=== PATIENT | female | born 1970 | race African-American/Black ===

== ENCOUNTER 2019-02-22 09:42 | Emergency (ER) | payer OTHER ==
[~2019-02-22] VITALS: Ht 170.2 cm; Wt 70.3 kg
--- NOTE | 2019-02-22 09:55 | NUR ---
ED Nurse Note: patient walked into ED from home c/o chest pain and blurry vision before coming into ED. patient reports hx of DM but has not been taking medication for a long time. patient reports she is undergoing a lot of stress at home. patient reports she has itchiness on vaginal area for 7 days. patient is alert awake x4 ambulatory, breathing unlabored and even, speaking in full sentences, patient on a facilities maintenance manager, patient in a hospital gown.
[2019-02-22] MEDS ORDERED: METFORMIN ER1000 MG PO ×2 (09:57→14:16)
--- NOTE | 2019-02-22 10:08 | Emergency Room Report ---
History of Present Illness General Chief Complaint: Chest Pain Source: Patient Present Illness HPI Disclaimer: Please note that this report is being documented using [employer] technology. This can lead to erroneous entry secondary to incorrect interpretation by the dictating instrument. HPI: 48-year-old female presents to the emergency department multiple complaints. She is complaining of 2 weeks of aching over the anterior portion of the chest without associated shortness of breath. No alleviating or exacerbating factors along with this chest pain and she has had it intermittently for much longer than the 2 weeks. She also noted some weakness in the legs and some blurred vision today believes her blood sugar may be out of control. Patient states she is a diabetic and was previous taking metformin and glipizide but is not had her medications in over a year. She states she has been without food for 5 days. She states she has a new primary doctor and was seen at their office but not given any new medications. She is also complaining of dysuria for some time but cannot quantify. Denies vaginal bleeding, vomiting or diarrhea. Blood sugar reading on triage is over 500 PMH: Diabetes, hypertension PSH: Reviewed Allergies: Denies Social Hx: Denies drug or alcohol abuse Allergies: Coded Allergies: No Known Allergies (Unverified , 02/22/19) Nursing Documentation-PMH Past Medical History: No History, Except For Hx Diabetes: Yes Review of Systems All Other Systems: negative except mentioned in HPI Physical Exam Vital Signs Date Time Temp Pulse Resp B/P (MAP) Pulse Ox O2 Delivery O2 Flow Rate FiO2 02/22/19 09:48 98.2 95 18 162/81 (108) 97 Room Air General: Awake and alert, no acute distress HEENT: NC/AT. EOMI. PERRLA. Vision grossly intact with full visual orr. No nystagmus. Dry mucous membranes Chest Wall: No tenderness, no deformity Cardiovascular: RRR. S1 and S2 normal. No murmur appreciated Resp: Normal work of breathing. No cough, wheezing or crackles appreciated Abdomen: Abdomen is soft, nondistended. Nontender : Normal-appearing external genitalia. There is thick white discharge present from the cervical office with a friable mucosa and minor bleeding after swab. No curd-like material. No ulcerations or other lesions appreciated. Skin: Intact. No abrasions, laceration or rash over the exposed skin MSK: Normal tone and bulk. Moving all extremities. No obvious deformity. Neuro: Awake and alert. Mentating appropriately. Medical Decision Making Diagnostic Impression: Primary Impression: Trichomonas vaginitis Additional Impressions: Hyperglycemia Chest pain ER Course 48-year-old female presents for evaluation of chest pain, blurred vision, diffuse weakness, lack of food and other low blood sugar readings. In triage her fingerstick reading was greater than 500. Concern for DKA, HHS, electrolyte abnormalities, dehydration, ACS, angina, UTI, pyelonephritis. We will start broad metabolic and infectious work-up including ketone levels possible DKA. EKG performed is nonischemic and chest pains been going on for several weeks and even longer according to patient. We will start IV fluids. Will correct blood sugar as labs resulted. Laboratory Tests Test 02/22/19 10:09 02/22/19 10:15 White Blood Count 6.8 K/UL (4.8-10.8) Red Blood Count 6.07 M/UL (4.20-5.40) H Hemoglobin 17.4 G/DL (12.0-16.0) H Hematocrit 52.7 % (37.0-47.0) H Mean Corpuscular Volume 87 FL (80-99) Mean Corpuscular Hemoglobin 28.6 PG (27.0-31.0) Mean Corpuscular Hemoglobin Concent 32.9 G/DL (32.0-36.0) Red Cell Distribution Width 11.3 % (11.6-14.8) L Platelet Count 164 K/UL (150-450) Mean Platelet Volume 11.8 FL (6.5-10.1) H Neutrophils (%) (Auto) 67.6 % (45.0-75.0) Lymphocytes (%) (Auto) 25.9 % (20.0-45.0) Monocytes (%) (Auto) 4.3 % (1.0-10.0) Eosinophils (%) (Auto) 1.2 % (0.0-3.0) Basophils (%) (Auto) 1.0 % (0.0-2.0) Sodium Level 131 MMOL/L (136-145) L Potassium Level 4.9 MMOL/L (3.5-5.1) Chloride Level 93 MMOL/L (98-107) L Carbon Dioxide Level 28 MMOL/L (21-32) Anion Gap 10 mmol/L (5-15) Blood Urea Nitrogen 16 mg/dL (7-18) Creatinine 1.3 MG/DL (0.55-1.30) Estimate Glomerular Filtration Rate 53.0 mL/min (>60) Glucose Level 653 MG/DL (74-106) *H Calcium Level 10.1 MG/DL (8.5-10.1) Magnesium Level 2.1 MG/DL (1.8-2.4) Total Bilirubin 0.8 MG/DL (0.2-1.0) Aspartate Amino Transferase (AST) 16 U/L (15-37) Alanine Aminotransferase (ALT) 30 U/L (12-78) Alkaline Phosphatase 173 U/L (46-116) H Troponin I 0.000 ng/mL (0.000-0.056) Total Protein 8.7 G/DL (6.4-8.2) H Albumin 4.3 G/DL (3.4-5.0) Globulin 4.4 g/dL Albumin/Globulin Ratio 1.0 (1.0-2.7) Acetone Level Negative (NEGATIVE) Urine Color Pale yellow Urine Appearance Clear Urine pH 6 (4.5-8.0) Urine Specific [place] 1.010 (1.005-1.035) Urine Protein Negative (NEGATIVE) Urine Glucose (UA) 4+ (NEGATIVE) H Urine Ketones Negative (NEGATIVE) Urine Blood Negative (NEGATIVE) Urine Nitrite Negative (NEGATIVE) Urine Bilirubin Negative (NEGATIVE) Urine Urobilinogen Normal MG/DL (0.0-1.0) Urine Leukocyte Esterase 1+ (NEGATIVE) H Urine RBC 2-4 /HPF (0 - 2) H Urine WBC 2-4 /HPF (0 - 2) Urine Squamous Epithelial Cells Occasional /LPF Urine Bacteria Occasional /HPF (NONE) Microbiology Date/Time Source Procedure Growth Status 02/22/19 13:15 Vaginal Wet Prep - Final Complete EKG Diagnostic Results EKG Time: 10:05 Rate: normal Rhythm: NSR ST Segments: no acute changes Other Impression Sinus rhythm, normal axis, normal intervals, no ST segment changes. Rhythm Strip Diag. Results Rhythm Strip Time: 10:05 EP Interpretation: yes Rate: 80s Rhythm: NSR, no PVC's, no ectopy Reevaluation Time: 14:13 Last Vital Signs Date Time Temp Pulse Resp B/P (MAP) Pulse Ox O2 Delivery O2 Flow Rate FiO2 02/22/19 09:48 98.2 95 18 162/81 (108) 97 Room Air Reevaluation Impression Labs show hyperglycemia but no anion gap and negative ketones. No concern for DKA at this time. Troponin is negative and EKG is nonischemic. Chest x-ray unremarkable. Chest pain and other symptoms have resolved after the patient was given IV fluids and insulin with correction of her sugars. Wet mount shows concern for trichomonas and the patient will be treated with a one-time dose of 2 g Flagyl and told to abstain from alcohol from 24 hours. She will be discharged to follow-up as an outpatient. Vital signs remained stable and she is appropriate for outpatient follow-up and further work-up of intermittent chest pain for the past several months. We will refill her medications. Discussed reasons to return to the emergency department. Understands and agrees with this treatment plan. Disposition: HOME, SELF-CARE Condition: Improved Scripts Metformin HCl (Metformin ER Gastric) 1,000 Mg [id number] 1000 MG PO BID for 14 Days, #28 TAB Prov: Boni Sinclair MD 02/22/19 Boni Sinclair MD Feb 22, 2019 10:08
[2019-02-22 10:30] LABS: EOSINOPHILS % (AUTO) 1.2 % (0.0-3.0); HEMATOCRIT 52.7 % (37.0-47.0); HEMOGLOBIN 17.4 G/DL (12.0-16.0); LYMPHOCYTES % (AUTO) 25.9 % (20.0-45.0); MEAN CORPUSCULAR VOLUME 87 FL (80-99); MONOCYTES % (AUTO) 4.3 % (1.0-10.0); NEUTROPHILS % (AUTO) 67.6 % (45.0-75.0); PLATELET COUNT 164 K/UL (150-450); RED BLOOD COUNT 6.07 M/UL (4.20-5.40); RED CELL DISTRIBUTION WIDTH 11.3 % (11.6-14.8); WHITE BLOOD COUNT 6.8 K/UL (4.8-10.8)
--- NOTE | 2019-02-22 10:30 | NUR ---
ED Nurse Note: patient assited to the restroom, taken back to her bed, patient back on the monitor, at this time, patient denies any pain or discomfort except vaginal itchiness, denies any chest pain at this time.
[2019-02-22 10:37] VITALS: BP 147/98
[2019-02-22 10:48] LABS: APPEARANCE,URINE CLEAR; BILIRUBIN, URINE NEGATIVE (NEGATIVE); COLOR,URINE PALE YELLOW; GLUCOSE, URINE (UA) 4+ (NEGATIVE); KETONES,URINE NEGATIVE (NEGATIVE); LEUKOCYTE ESTERASE ,URINE 1+ (NEGATIVE); NITRITE,URINE NEGATIVE (NEGATIVE); PH,URINE 6 (4.5-8.0); PROTEIN,URINE NEGATIVE (NEGATIVE); UROBILINOGEN,URINE NORMAL MG/DL (0.0-1.0)
[2019-02-22 11:07] LABS: ALANINE AMINOTRANSFERASE 30 U/L (12-78); ALBUMIN 4.3 G/DL (3.4-5.0); ALKALINE PHOSPHATASE 173 U/L (46-116); ANION GAP 10 mmol/L (5-15); ASPARTATE AMINO TRANSFERASE 16 U/L (15-37); BILIRUBIN,TOTAL 0.8 MG/DL (0.2-1.0); BLOOD UREA NITROGEN 16 mg/dL (7-18); CALCIUM 10.1 MG/DL (8.5-10.1); CARBON DIOXIDE 28 MMOL/L (21-32); CHLORIDE 93 MMOL/L (98-107); CREATININE 1.3 MG/DL (0.55-1.30); POTASSIUM 4.9 MMOL/L (3.5-5.1); SODIUM 131 MMOL/L (136-145)
[2019-02-22] MEDS ORDERED: Insulin Human Regular 100units/ml 3ml IV ONE (11:30)
[2019-02-22] MEDS ORDERED: Acetaminophen 500mg (ES) tab ORAL ONE ×2 (12:58→13:00)
--- NOTE | 2019-02-22 13:30 | NUR ---
ED Nurse Note: wetmount specimen sent to lab.
[2019-02-22] MEDS ORDERED: metroNIDAZOLE 500mg tab ORAL ONE (14:15)
--- NOTE | 2019-02-22 14:20 | Diagnostic Imaging Report ---
Indication: Chest pain Technique: One view of the chest Comparison: none Findings: Lungs and pleural spaces are clear. Heart size is normal. Impression: No acute process
[2019-02-22 14:25] VITALS: BP 141/92
[2019-02-22 14:39] VITALS: BP 141/92
== END 2019-02-22 14:39 | disposition home or self-care (01) ==
LOC: EMR 10:25
DX: A59.01 Trichomonal vulvovaginitis (principal); E11.65 Type 2 diabetes mellitus with hyperglycemia; R07.9 Chest pain, unspecified; I10 Essential (primary) hypertension; Z79.84 Long term (current) use of oral hypoglycemic drugs
CPT/HCPCS: 36415; 71045; 80053; 81003; 82009; 82962; 83735; 84484; 85025; 87210; 93005; 96361; 96374; J1815; Z7502; 99284

== ENCOUNTER 2019-03-06 17:43 | Emergency (ER) | payer OTHER ==
[~2019-03-06] VITALS: Ht 170.2 cm; Wt 66.7 kg
[~2019-03-06 17:43] MED LIST: METFORMIN ER1000 MG PO
--- NOTE | 2019-03-06 18:00 | NUR ---
ED Nurse Note: Patient ambulated into ER with a c/o high blood pressure, high blood sugar, and chest pain from the clinic. Patient AAOx4, on room air. Patient has no signs of respiratory distress. Placed patient in gown and on cardiac monitors. Urine specimen and blood specimen sent to laboratory.
[2019-03-06] MEDS ORDERED: ACETAMINOPHEN500 MG ORAL (18:04)
[2019-03-06] MEDS ORDERED: GLIPIZIDE5 MG ORAL (18:04)
[2019-03-06] MEDS ORDERED: LOSARTAN POTASS50 MG ORAL (18:04)
[2019-03-06] MEDS ORDERED: LEVOTHYROXINE75 MCG ORAL (18:04)
--- NOTE | 2019-03-06 18:05 | NUR ---
ED Nurse Note: ERMD bedside.
--- NOTE | 2019-03-06 18:20 | Emergency Room Report ---
History of Present Illness General Chief Complaint: Chest Pain Source: Patient Present Illness HPI Disclaimer: Please note that this report is being documented using [employer] technology. This can lead to erroneous entry secondary to incorrect interpretation by the dictating instrument. HPI: 48-year-old female history of diabetes and hypertension presents to the emergency department for evaluation of hypertension. She was seen at her PMDs office today where she reportedly had both high blood sugar readings and hypertension readings. She does not know the numerical value of either. She is otherwise in her usual state of health. She was seen in the emergency department last week for high blood sugars and hypertension as well as intermittent chest pain. She is denying chest pain or shortness of breath, headache, vision changes at this time but they have been happening intermittently for several months while the patient did not have her medications. She was sent over for medical evaluation of hypertension and hyper glycemia which are longstanding. She has been without her medications for some time but filled them today at her PMDs office. PMH: Diabetes, hypertension PSH: Reviewed Allergies: Denies Social Hx: Denies drug or alcohol use Allergies: Coded Allergies: No Known Allergies (Unverified , 02/22/19) Patient History Last Menstrual Period: 09/2018 Now: No Nursing Documentation-PMH Past Medical History: No History, Except For Hx Diabetes: Yes Review of Systems All Other Systems: negative except mentioned in HPI Physical Exam Vital Signs Date Time Temp Pulse Resp B/P (MAP) Pulse Ox O2 Delivery O2 Flow Rate FiO2 03/06/19 17:53 98.4 110 17 161/87 (111) 98 Room Air General: Awake and alert, no acute distress HEENT: NC/AT. EOMI. Cardiovascular: RRR. S1 and S2 normal. No murmur appreciated Resp: Normal work of breathing. No cough, wheezing or crackles appreciated Abdomen: Abdomen is soft, nondistended. Nontender Skin: Intact. No abrasions, laceration or rash over the exposed skin MSK: Normal tone and bulk. Moving all extremities. No obvious deformity. Neuro: Awake and alert. Mentating appropriately. Medical Decision Making Diagnostic Impression: Primary Impression: Hyperglycemia Additional Impressions: Prolonged QT interval Chest pain ER Course 48-year-old female presents for evaluation of elevated blood pressure readings and hyperglycemia noted at her PMDs office. Also reported some chest pain earlier this week but now chest pain-free. Will repeat EKG, chest x-ray, lab work-up including ketones start IV fluids. Laboratory Tests Test 03/06/19 18:00 03/06/19 18:35 03/06/19 19:00 Urine Color Pale yellow Urine Appearance Clear Urine pH 6 (4.5-8.0) Urine Specific [place] 1.005 (1.005-1.035) Urine Protein Negative (NEGATIVE) Urine Glucose (UA) 4+ (NEGATIVE) H Urine Ketones Negative (NEGATIVE) Urine Blood Negative (NEGATIVE) Urine Nitrite Negative (NEGATIVE) Urine Bilirubin Negative (NEGATIVE) Urine Urobilinogen Normal MG/DL (0.0-1.0) Urine Leukocyte Esterase Negative (NEGATIVE) Urine HCG, Qualitative Negative (NEGATIVE) Sodium Level 130 MMOL/L (136-145) L Potassium Level 4.2 MMOL/L (3.5-5.1) Chloride Level 93 MMOL/L (98-107) L Carbon Dioxide Level 25 MMOL/L (21-32) Anion Gap 12 mmol/L (5-15) Blood Urea Nitrogen 13 mg/dL (7-18) Creatinine 1.3 MG/DL (0.55-1.30) Estimate Glomerular Filtration Rate 53.0 mL/min (>60) Glucose Level 785 MG/DL (74-106) *H Calcium Level 9.2 MG/DL (8.5-10.1) Total Bilirubin 0.3 MG/DL (0.2-1.0) Aspartate Amino Transferase (AST) 18 U/L (15-37) Alanine Aminotransferase (ALT) 37 U/L (12-78) Alkaline Phosphatase 126 U/L (46-116) H Troponin I 0.029 ng/mL (0.000-0.056) Total Protein 7.0 G/DL (6.4-8.2) Albumin 3.5 G/DL (3.4-5.0) Globulin 3.5 g/dL Albumin/Globulin Ratio 1.0 (1.0-2.7) Acetone Level Positive-small (NEGATIVE) White Blood Count 6.0 K/UL (4.8-10.8) Red Blood Count 5.18 M/UL (4.20-5.40) Hemoglobin 14.8 G/DL (12.0-16.0) Hematocrit 43.0 % (37.0-47.0) Mean Corpuscular Volume 83 FL (80-99) Mean Corpuscular Hemoglobin 28.6 PG (27.0-31.0) Mean Corpuscular Hemoglobin Concent 34.4 G/DL (32.0-36.0) Red Cell Distribution Width 10.0 % (11.6-14.8) L Platelet Count 209 K/UL (150-450) Mean Platelet Volume 8.0 FL (6.5-10.1) Neutrophils (%) (Auto) 58.1 % (45.0-75.0) Lymphocytes (%) (Auto) 33.2 % (20.0-45.0) Monocytes (%) (Auto) 6.7 % (1.0-10.0) Eosinophils (%) (Auto) 0.7 % (0.0-3.0) Basophils (%) (Auto) 1.4 % (0.0-2.0) EKG Diagnostic Results EKG Time: 18:08 Rate: normal Rhythm: NSR ST Segments: no acute changes Other Impression Sinus rhythm, normal axis, prolonged QTC at [address] segment changes. Largely unchanged from previous EKGs Rhythm Strip Diag. Results Rhythm Strip Time: 18:08 EP Interpretation: yes Rate: 90s Rhythm: NSR, no PVC's, no ectopy Chest X-Ray Diagnostic Results Chest X-Ray Diagnostic Results : Chest X-Ray Ordered: Yes # of Views/Limited/Complete: 1 View Indication: Chest Pain EP Interpretation: Yes Interpretation: no consolidation, no effusion, no pneumothorax Impression: No acute disease Electronically Signed by: Electronically signed by Dr. Boni Sinclair Reevaluation Time: 19:59 Last Vital Signs Date Time Temp Pulse Resp B/P (MAP) Pulse Ox O2 Delivery O2 Flow Rate FiO2 03/06/19 17:53 98.4 110 17 161/87 (111) 98 Room Air Reevaluation Impression Labs have returned largely within normal limits aside from elevated glucose. No white count, no shift, negative troponin. Glucose is elevated at 785. The patient is receiving IV fluids and will be given insulin. Trace ketones found but there is no gap. The patient is not currently in DKA. Glucose is present in urine but no ketones. EKG unchanged from previous and x-ray unremarkable. Patient has no chest pain and no other complaints at this time. Her heart rate and blood pressure are within normal limits. She will be treated with for hyperglycemia. She picked up her medications today to start taking them regularly. She was without medication for a long time prior to today's presentation. 2129: Glucose improved significantly after IV fluids and insulin. Discussed admission versus outpatient treatment with the patient and a joint decision making session. Patient would like to be discharged home to follow-up as an outpatient. Now that she has her medications she feels that she can control this as an outpatient and follow-up with specialist on her own. She is reasonable and I believe she would return to the ED with any changes in her condition. We did discuss reasons to return to the emergency department. She understands and agrees with the treatment plan will be discharged home. Disposition: HOME, SELF-CARE Condition: Improved Boni Sinclair MD Mar 06, 2019 18:20
[2019-03-06 18:23] LABS: APPEARANCE,URINE CLEAR; BILIRUBIN, URINE NEGATIVE (NEGATIVE); COLOR,URINE PALE YELLOW; GLUCOSE, URINE (UA) 4+ (NEGATIVE); KETONES,URINE NEGATIVE (NEGATIVE); LEUKOCYTE ESTERASE ,URINE NEGATIVE (NEGATIVE); NITRITE,URINE NEGATIVE (NEGATIVE); PH,URINE 6 (4.5-8.0); PROTEIN,URINE NEGATIVE (NEGATIVE); UROBILINOGEN,URINE NORMAL MG/DL (0.0-1.0)
--- NOTE | 2019-03-06 18:58 | NUR ---
ED Nurse Note: Pt with X-ray tech
--- NOTE | 2019-03-06 18:58 | NUR ---
ED Nurse Note: xray at bedside.
--- NOTE | 2019-03-06 19:12 | NUR ---
ED Nurse Note: Lav tube sent to lab.
[2019-03-06 19:18] LABS: BASOPHILS % (AUTO) 1.4 % (0.0-2.0); EOSINOPHILS % (AUTO) 0.7 % (0.0-3.0); HEMOGLOBIN 14.8 G/DL (12.0-16.0); LYMPHOCYTES % (AUTO) 33.2 % (20.0-45.0); MEAN CORPUSCULAR VOLUME 83 FL (80-99); MONOCYTES % (AUTO) 6.7 % (1.0-10.0); NEUTROPHILS % (AUTO) 58.1 % (45.0-75.0); PLATELET COUNT 209 K/UL (150-450); RED BLOOD COUNT 5.18 M/UL (4.20-5.40)
[2019-03-06 19:29] LABS: ANION GAP 12 mmol/L (5-15); BLOOD UREA NITROGEN 13 mg/dL (7-18); CALCIUM 9.2 MG/DL (8.5-10.1); CARBON DIOXIDE 25 MMOL/L (21-32); CHLORIDE 93 MMOL/L (98-107); CREATININE 1.3 MG/DL (0.55-1.30); POTASSIUM 4.2 MMOL/L (3.5-5.1); SODIUM 130 MMOL/L (136-145)
[2019-03-06 19:30] VITALS: BP 165/88
[2019-03-06 19:30] LABS: ALANINE AMINOTRANSFERASE 37 U/L (12-78); ALBUMIN 3.5 G/DL (3.4-5.0); ALKALINE PHOSPHATASE 126 U/L (46-116); ASPARTATE AMINO TRANSFERASE 18 U/L (15-37); BILIRUBIN,TOTAL 0.3 MG/DL (0.2-1.0)
[2019-03-06] MEDS ORDERED: Insulin Human Regular 100units/ml 3ml IV ONE (20:00)
--- NOTE | 2019-03-06 20:38 | NUR ---
ED Nurse Note: [id number]
[2019-03-06 21:15] VITALS: BP 146/85
--- NOTE | 2019-03-06 21:31 | NUR ---
ED Nurse Note: [id number]
[2019-03-06 21:45] VITALS: BP 146/82
--- NOTE | 2019-03-06 21:45 | NUR ---
ER DISCHARGE NOTE: Patient is cleared to be discharged per ERMD, pt is aox4, on room air, with stable vital signs. pt was given dc and prescription instructions, pt was able to verbalize understanding, pt id band and iv site removed without complications. pt is able to ambulate with steady gait. pt took all belongings. Pt states pain ia 0/10 and feels safe going home.
--- NOTE | 2019-03-07 13:42 | Diagnostic Imaging Report ---
Indication: Chest pain Technique: One view of the chest Comparison: 02/22/2019 Findings: Lungs and pleural spaces are clear. Heart size is normal. Findings are unchanged Impression: No acute process
== END 2019-03-06 21:45 | disposition home or self-care (01) ==
LOC: EMR 21:00
DX: E11.65 Type 2 diabetes mellitus with hyperglycemia (principal); I10 Essential (primary) hypertension; R07.9 Chest pain, unspecified
CPT/HCPCS: 36415; 71045; 80053; 81003; 81025; 82009; 82962; 84484; 85025; 93005; 96361; 96374; J1815; J7030; Z7502; 99284

== ENCOUNTER 2019-04-28 11:52 | Inpatient (IN) | payer OTHER ==
[~2019-04-28] VITALS: Ht 167.6 cm; Wt 63.5 kg
[~2019-04-28 11:52] MED LIST changes: +ACETAMINOPHEN500 MG ORAL; +GLIPIZIDE5 MG ORAL; +LEVOTHYROXINE75 MCG ORAL; +LOSARTAN POTASS50 MG ORAL
[2019-04-28] MEDS ORDERED: BIOTIN2500 MCG PO (12:08)
[2019-04-28] MEDS ORDERED: ATORVASTATIN CA20 MG ORAL (12:08)
[2019-04-28 12:15] VITALS: BP 129/66
[2019-04-28] MEDS ORDERED: Ketorolac 30mg Inj IV ONE (12:15)
[2019-04-28] MEDS ORDERED: Omnipaque-300 100ml vial INJ PRN (12:15)
--- NOTE | 2019-04-28 12:15 | NUR ---
ED Nurse Note: Pt walked in from home c/o abdominal pain since this morning. Pt is diabetic and checked her sugar and it said "high." Pt also feels weak. Respirations even and unlabored on room air. A+O4, talking in complete sentences. Vitals stable as documented. Pt placed on monitor and EKG done
--- NOTE | 2019-04-28 12:27 | NUR ---
ED Nurse Note: Iv inserted, blood drawn. Urine and blood sent to lab
[2019-04-28 12:35] LABS: APPEARANCE,URINE CLEAR; BILIRUBIN, URINE NEGATIVE (NEGATIVE); COLOR,URINE PALE YELLOW; GLUCOSE, URINE (UA) 4+ (NEGATIVE); KETONES,URINE NEGATIVE (NEGATIVE); LEUKOCYTE ESTERASE ,URINE NEGATIVE (NEGATIVE); NITRITE,URINE NEGATIVE (NEGATIVE); PH,URINE 5 (4.5-8.0); PROTEIN,URINE NEGATIVE (NEGATIVE); UROBILINOGEN,URINE NORMAL MG/DL (0.0-1.0)
[2019-04-28 12:36] LABS: BASOPHILS % (AUTO) 1.3 % (0.0-2.0); EOSINOPHILS % (AUTO) 2.1 % (0.0-3.0); HEMATOCRIT 43.6 % (37.0-47.0); HEMOGLOBIN 14.6 G/DL (12.0-16.0); LYMPHOCYTES % (AUTO) 30.4 % (20.0-45.0); MEAN CORPUSCULAR VOLUME 87 FL (80-99); MONOCYTES % (AUTO) 6.5 % (1.0-10.0); NEUTROPHILS % (AUTO) 59.6 % (45.0-75.0); PLATELET COUNT 229 K/UL (150-450); RED BLOOD COUNT 5.02 M/UL (4.20-5.40); WHITE BLOOD COUNT 6.5 K/UL (4.8-10.8)
--- NOTE | 2019-04-28 12:37 | Emergency Room Report ---
History of Present Illness General Chief Complaint: Abdominal Pain Source: Patient (Horace Briseno) Present Illness HPI 48-year-old female with history of type 2 diabetes currently not controlled and on metformin 1000 mg twice daily here complaining of 3 weeks of abdominal distention and pain. Patient also complains of slight blurry vision and tingling sensation bilateral lower extremities x1 week. Reports that she just went to her primary care doctor Accu-Chek showed that her sugar is critically high. Patient denies any urinary symptoms however complains of chest pressure denying chest pain radiating to the arm. Denies unilateral and generalized weakness. Denies headache and dizziness at this time. Reports that she has been experiencing an acidic and frothy taste in her mouth for the past few weeks. Complains of nausea however denies vomiting. Reports that she was also constipated and took a laxative yesterday and had a bowel movement 1 day ago. Denies any blood in stool. Denies fever and chills, recent travel. Denies all URI symptoms. Denies at this time. Denies tobacco smoking alcohol intake however reports that she often uses marijuana. (Horace Briseno) Allergies: Coded Allergies: No Known Allergies (Unverified , 02/22/19) Patient History Past Medical History: see triage record Past Surgical History: unable to obtain Pertinent Family History: none Social History: Reports: drug use - marijuana Now: No Immunizations: UTD Reviewed Nursing Documentation: PMH: Agreed; PSxH: Agreed (Horace Briseno) Nursing Documentation-PMH Past Medical History: No History, Except For Hx Hypertension: Yes - HIGH CHOLESTEROL Hx Diabetes: Yes (Horace Briseno) Review of Systems All Other Systems: negative except mentioned in HPI (Horace Briseno) Physical Exam Vital Signs Date Time Temp Pulse Resp B/P (MAP) Pulse Ox O2 Delivery O2 Flow Rate FiO2 04/28/19 11:57 98.2 102 16 145/89 (107) 100 Room Air Sp02 EP Interpretation: reviewed, normal General Appearance: alert, GCS 15, non-toxic, mild distress Head: normocephalic, atraumatic Eyes: bilateral eye normal inspection, bilateral eye PERRL ENT: hearing grossly normal, normal pharynx, no angioedema, normal voice Neck: full range of motion, supple, no meningismus, supple/symm/no masses Respiratory: chest non-tender, lungs clear, normal breath sounds, no rhonchi, no retraction, no wheezing, speaking full sentences Cardiovascular #1: regular rate, rhythm, no edema, no murmur, normal capillary refill Gastrointestinal: normal bowel sounds, non tender, soft, no peritonitis, no bruit, no guarding, no hernia, no pulsatile mass, no rebound, distended Rectal: deferred Genitourinary: no CVA tenderness Musculoskeletal: back normal, no calf tenderness, pelvis stable, Florencio's Sign negative Neurologic: alert, motor strength/tone normal, oriented x3, sensory intact, responsive, speech normal Psychiatric: judgement/insight normal, memory normal, mood/affect normal, no suicidal/homicidal ideation Skin: no rash Lymphatic: no adenopathy (Horace Briseno) Medical Decision Making PA Attestation All diagnoses and treatment plans were reviewed and discussed with my supervising physician Dr. Deluca All my diagnosis and treatment plans were reviewed ad discussed with my supervising physician Dr. Gaming (Horace Briseno) Diagnostic Impression: Primary Impression: Hyperglycemia Additional Impression: Elevated lactic acid level ER Course 48-year-old female with history of type 2 diabetes currently not controlled and on metformin 1000 mg twice daily here complaining of 3 weeks of abdominal distention and pain. Patient also complains of slight blurry vision and tingling sensation bilateral lower extremities x1 week. Reports that she just went to her primary care doctor Accu-Chek showed that her sugar is critically high. Patient denies any urinary symptoms however complains of chest pressure denying chest pain radiating to the arm. Denies unilateral and generalized weakness. Denies headache and dizziness at this time. Reports that she has been experiencing an acidic and frothy taste in her mouth for the past few weeks. Complains of nausea however denies vomiting. Reports that she was also constipated and took a laxative yesterday and had a bowel movement 1 day ago. Denies any blood in stool. Denies fever and chills, recent travel. Denies all URI symptoms. Denies at this time. Denies tobacco smoking alcohol intake however reports that she often uses marijuana. Ddx considered but are not limited to: Diabetic ketoacidosis, hyperglycemia, pancreatitis, appendicitis, cholecystis, gastritis, gastroenteritis, UTI, pyelonephritis, SBO, diverticulitis, influenza with GI manifestation, MD, complication with Vital signs: are WNL, pt. is afebrile H&PE are most consistent with: Hyperglycemia, elevated lactic acid ORDERS: abdominal CT, abdominal pain set, EKG, troponin, BNP ED INTERVENTIONS: NS bolus and 300/h, Zofran, Pepcid, Toradol, cefepime, Flagyl Patient was admitted with diagnosis of glycemia, elevated lactic acid to Dr. Tamayo under supervision of Dr.: Yosi and Mekhi pt stable at time of admission (Horace Briseno) ER Course Please see above note. Patient examined by me and discussed in detail regarding treatment plan. Discussed with Dr. Adame. Recall Dr. Gonzalez to discuss elevated lactic acid. 30 mg/kg bolus given and antibiotics started.SEPSIS RE-EVALUATION: Vital signs improving. Patient ambulatory and alert. Capillary fill good. I, Leo Deluca MD, Performed the Sepsis Re-evaluation at 14:00. Discussed with Dr. Gonzalez. He will send ALS transport. Glucose 375. Patient ambulatory to bathroom without distress. (Leo Deluca MD) ER Course Patient endorsed to me by Dr. Deluca. Patient is pending transfer however patient's insurance was unable to arrange timely transfer. Patient will be admitted to the hospital at [facility]. Dr. Shalom Ellison was contacted for inpatient management. (Ramo Gaming MD) EKG Diagnostic Results Rate: normal Rhythm: NSR ST Segments: no acute changes Other Impression No acute ST changes (Horace Briseno) Rate: tachycardiac Rhythm: NSR ST Segments: no acute changes - biatrial enlargement, rate 100 (Leo Deluca MD) Rhythm Strip Diag. Results Rhythm: NSR, no PVC's, no ectopy (Leo Deluca MD) Chest X-Ray Diagnostic Results Chest X-Ray Diagnostic Results : Chest X-Ray Ordered: Yes # of Views/Limited/Complete: 1 View Indication: Other EP Interpretation: Yes PA Xray: Interpretation reviewed, by supervising MD, and agrees with findings. Interpretation: no consolidation, no effusion, no pneumothorax Impression: No acute disease Electronically Signed by: Horace Broussard PA-C (Horace Briseno) Chest X-Ray Diagnostic Results : Electronically Signed by: P A documentation of Xray reviewed by me and is accurate, Leo Deluca MD (Leo Deluca MD) CT/MRI/US Diagnostic Results CT/MRI/US Diagnostic Results : Imaging Test Ordered: CT abdomen pelvis with contrast Impression Within normal limits (Horace Briseno) CT/MRI/US Diagnostic Results : Imaging Test Ordered: Abdomen pelvis Impression Retained stool no surgical pathology (Leo Deluca MD) Last Vital Signs Date Time Temp Pulse Resp B/P (MAP) Pulse Ox O2 Delivery O2 Flow Rate FiO2 04/28/19 11:57 98.2 102 16 145/89 (107) 100 Room Air (Horace Briseno) Last Vital Signs Date Time Temp Pulse Resp B/P (MAP) Pulse Ox O2 Delivery O2 Flow Rate FiO2 04/28/19 21:20 72 04/28/19 21:20 Room Air 04/28/19 20:50 98.3 18 121/82 100 Status: improved (Leo Deluca MD) Status: improved (Ramo Gaming MD) Disposition: ADMITTED INPATIENT Condition: Serious Referrals: NON PHYSICIAN (PCP) Horace Briseno Apr 28, 2019 12:37 Leo Deluca MD Apr 28, 2019 14:56 Ramo Gaming MD May 01, 2019 22:29
[2019-04-28 12:45] LABS: INR 0.9 (0.9-1.1)
[2019-04-28 12:59] LABS: ALANINE AMINOTRANSFERASE 51 U/L (12-78); ALBUMIN 3.6 G/DL (3.4-5.0); ALBUMIN/GLOBULIN RATIO 0.9 (1.0-2.7); ALKALINE PHOSPHATASE 142 U/L (46-116); ANION GAP 15 mmol/L (5-15); ASPARTATE AMINO TRANSFERASE 21 U/L (15-37); BILIRUBIN,TOTAL 0.5 MG/DL (0.2-1.0); BLOOD UREA NITROGEN 12 mg/dL (7-18); CALCIUM 9.1 MG/DL (8.5-10.1); CARBON DIOXIDE 24 MMOL/L (21-32); CHLORIDE 92 MMOL/L (98-107); CREATINE KINASE 79 U/L (26-308); CREATININE 1.4 MG/DL (0.55-1.30); POTASSIUM 4.4 MMOL/L (3.5-5.1); SODIUM 131 MMOL/L (136-145)
--- NOTE | 2019-04-28 13:23 | NUR ---
ED Nurse Note: Pt in CT
[2019-04-28] MEDS ORDERED: Insulin Human Regular 100units/ml 3ml IV ONE (13:30)
[2019-04-28] MEDS ORDERED: metroNIDAZOLE 500mg tab ORAL ONE (13:45)
[2019-04-28] MEDS ORDERED: Cefepime HCl 2 GM in D5W 55 ML IVPB ONE (13:45)
[2019-04-28 14:10] VITALS: BP 112/78
--- NOTE | 2019-04-28 14:30 | Diagnostic Imaging Report ---
INDICATION: Abdominal pain TECHNIQUE: Continuous helical transaxial imaging of the abdomen and pelvis was obtained from the lung bases to the pubic symphysis during intravenous contrast administration. Coronal 2-D reformats were also obtained. Study obtained in a Siemens sensation [address] Automatic Exposure Control was utilized. Total Dose length Product (DLP): 751.[address] Dose Index Volume (CTDIvol): 13.6 mGy COMPARISON: None FINDINGS: Lungs: The visualized lung bases are clear. Liver: Unremarkable Gallbladder/biliary system: Gallbladder is contracted. There is no biliary ductal dilatation appreciated.. Spleen: Unremarkable Pancreas: Unremarkable Kidneys: No hydronephrosis identified. Both kidneys enhance symmetrically.. Adrenal glands: Unremarkable Aorta/IVC: Unremarkable Bowel: Bowel gas pattern is nonobstructive. There is a moderate amount of fecal retention within the colon which is slightly distended. There are diverticula in the left hemicolon. No evidence of acute diverticulitis appreciated. Bladder: Unremarkable Peritoneum: There is no free fluid. Uterus is noted.. Bones: There is loss of height of the L5-S1 disc with vacuum phenomena and endplate osteophyte formation. Hypertrophied facets also demonstrated at L4-5 and L5-S1. IMPRESSION: Moderate fecal retention within the colon. 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 Contracted gallbladder not evaluated well. The CT scanner at [facility] is accredited by the [employer] and the scans are performed using dose optimization techniques as appropriate to a performed exam including Automatic Exposure control.
--- NOTE | 2019-04-28 15:09 | NUR ---
ED Nurse Note: Fabricio jackson 375. ED PA aware
--- NOTE | 2019-04-28 15:41 | Diagnostic Imaging Report ---
Indication: Dyspnea Comparison: 03/06/2019 A single view chest radiograph was obtained. Findings: Cardiomediastinal appearance is within normal limits for age. The lungs are clear. Pulmonary vascularity is appropriate. The diaphragmatic contour is smooth and costophrenic angles are sharp. No pleural effusions are identified. The bones are unremarkable. Impression: No acute findings
--- NOTE | 2019-04-28 16:18 | NUR ---
ED Nurse Note: Pt is to be transferred to [facility]
[2019-04-28 17:49] VITALS: BP 115/79
--- NOTE | 2019-04-28 19:09 | NUR ---
ED Nurse Note: Report given to JOELLE sOborn. Plan of care endorsed.
[2019-04-28 19:10] VITALS: BP 119/69
--- NOTE | 2019-04-28 19:19 | NUR ---
ED Nurse Note: Received report from Emelyn LAI.
--- NOTE | 2019-04-28 19:50 | NUR ---
ED Nurse Note: Report given to Macrina LAI.
[2019-04-28 20:50] VITALS: BP 121/82
--- NOTE | 2019-04-28 20:50 | NUR ---
TRANSFER TO FLOOR: Patient transferred to Telemetry unit. Report given to Macrina LAI. Pt alert and oriented, verbally responsive. Not in any distress. No SOB. Sinus rhythm. IV line on right AC 18g patent and intact. No skin issues. Med recon done. All belongings sent with the patient.
--- NOTE | 2019-04-28 21:25 | NUR ---
NURSE NOTES: Patient arrived to the unit via gurney at 0, accompanied by the RN and the dev technical mgr. Received report from Anurag, the HARNESS PREPARER. Patient is awake, alert, and responsive. Breathing regular and unlabored on RA with no s/s of SOB noted at this time. Patient denies any pain or discomfort at this time. IV access is on the RAC 18G, patent, intact, and saline locked. Patient is ambulatory, with a steady gait. Patient's belongings are at bedside, belongings list signed by the patient. Patient stated "My will take all my stuff when he comes." Placed patient on teletypesetter monitor, NSR on the monitor. Oriented patient to the room, patient is able to make needs known and verbalizes understanding of when to call. Bed is in lowest position, breaks engaged, side-rails up x2, and call light is within reach at all times. Patient is currently stable, awaiting orders from the MD. All other needs attended to, will continue to monitor.
--- NOTE | 2019-04-28 21:40 | NUR ---
NURSE NOTES: Contacted Dr. Ellison to receive admitting orders, left a message with the support line that advised they will page Dr. Ellison for orders. Will await response.
--- NOTE | 2019-04-28 22:45 | NUR ---
NURSE NOTES: Contacted Dr. Newby and Dr. Fang to find out if they are covering for Dr. Ellison to receive admitting orders. No new orders, awaiting response.
--- NOTE | 2019-04-28 23:25 | NUR ---
NURSE NOTES: Contacted Dr. Ellison's office again for admitting orders. Support system said they will page the doctor again. Will await response.
[2019-04-29] VITALS: BP 131/90
[2019-04-29] MEDS: D5 1/2NS 1,000 ML IV SCH ×2 (01:46→17:31)
[2019-04-29] MEDS: Morphine Sulfate 2mg/ml Inj(IV/IM USE ONLY) IVP PRN ×2 (01:49→08:52)
[2019-04-29] MEDS ORDERED: Acetaminophen 500mg (ES) tab ORAL SCH (02:00)
[2019-04-29] MEDS ORDERED: Acetaminophen 500mg (ES) tab ORAL PRN (02:45)
--- NOTE | 2019-04-29 03:37 | NUR ---
NURSE NOTES: Noted patient suddenly started to yell and bang on the side of the bed. Attended to the patient right away to try and calm him down and see what was wrong. Patient was continuously screaming, banging on the bed, trying to remove his IV. Multiple RN's attended to the patient in attempt to calm him down and preventing him from trying to pull out his IV. Administered PRN Ativan as ordered for anxiety. Remained with the patient in attempt to relieve anxiety. Contacted the patient's sister and left a voicemail in regards to what had occurred. Patient is currently stable, patient appears to be calm, no longer banging on anything, no longer yelling, and no longer pulling on anything. Patient is not in any acute distress, VS remain stable, all other needs attended to, call light within reach, will continue to monitor. Addendum: 04/29/19 at 0343 by Lesvia Adorno RN Please ignore, wrong patient chart
[2019-04-29 04:00] VITALS: BP 124/68
[2019-04-29] MEDS: NovoLOG Insulin Flexpen SUBQ SCH ×4 (06:20→21:02)
[2019-04-29] MEDS ORDERED: Levothyroxine 25mcg tab ORAL SCH (06:30)
[2019-04-29 07:24] LABS: BASOPHILS % (AUTO) 1.5 % (0.0-2.0); EOSINOPHILS % (AUTO) 2.2 % (0.0-3.0); HEMATOCRIT 38.1 % (37.0-47.0); HEMOGLOBIN 13.1 G/DL (12.0-16.0); LYMPHOCYTES % (AUTO) 33.7 % (20.0-45.0); MEAN CORPUSCULAR VOLUME 86 FL (80-99); MONOCYTES % (AUTO) 7.5 % (1.0-10.0); PLATELET COUNT 193 K/UL (150-450); RED BLOOD COUNT 4.43 M/UL (4.20-5.40); RED CELL DISTRIBUTION WIDTH 11.9 % (11.6-14.8); WHITE BLOOD COUNT 5.1 K/UL (4.8-10.8)
[2019-04-29 07:25] LABS: ANION GAP 8 mmol/L (5-15); BLOOD UREA NITROGEN 10 mg/dL (7-18); CALCIUM 8.4 MG/DL (8.5-10.1); CARBON DIOXIDE 27 MMOL/L (21-32); CHLORIDE 104 MMOL/L (98-107); CREATININE 0.8 MG/DL (0.55-1.30); POTASSIUM 4.1 MMOL/L (3.5-5.1); SODIUM 139 MMOL/L (136-145)
--- NOTE | 2019-04-29 07:45 | NUR ---
HAND-OFF: Report given to JOELLE Foster. Plan of care endorsed, patient remains stable.
--- NOTE | 2019-04-29 07:49 | NUR ---
NURSE NOTES: Received report from Macrina/RN, Patient is awake and alert, lying semi-dodd's, resting comfortably. On room air, no acute distress/SOB noted. Able to make needs known, Denies pain at this time. IV on right AC patent, no infiltration or bleeding noted, D5 1/2 NS running at 60cc/hr. Bed in low position and locked, Call light within reach, Encouraged to use call light when needed. Will continue plan of care.
[2019-04-29 08:00] VITALS: BP 146/91
[2019-04-29] MEDS: Losartan 50mg tab ORAL SCH (08:52)
[2019-04-29] MEDS ORDERED: GlipiZIDE 5mg tab ORAL SCH (09:00)
[2019-04-29] MEDS ORDERED: Sorbitol Solution UD 30ml ORAL SCH (11:00)
[2019-04-29 12:00] VITALS: BP 124/87
--- NOTE | 2019-04-29 12:30 | History and Physical Report ---
DATE OF ADMISSION: 04/28/2019 DATE AND TIME SEEN: 04/29/2019 at 8 a.m. CONSULTANTS: 1. Cortes Styles M.D. 2. Reilly Summers M.D. CHIEF COMPLAINT: Diabetes, hyperglycemia, abdominal distention, lactic acidosis. BRIEF HISTORY: This is a 48-year-old female, who lives at home with a history of diabetes, presented with increased abdominal distention and burning for about a week. No nausea, vomiting, came to [facility], diagnosed with diabetes, hyperglycemia, lactic acidosis, and abdominal distention. Admitted to telemetry for further care. Currently, calm in bed, slight abdominal discomfort. No complaint. REVIEW OF SYSTEMS: No chest pain. No shortness of breath. No nausea, vomiting, or diarrhea. PAST MEDICAL HISTORY: Diabetes and hypertension. PAST SURGICAL HISTORY: None. MEDICATIONS: Include metformin, atorvastatin, glipizide, losartan, insulin, levothyroxine, Tylenol, dextrose, morphine, Zofran, and cefepime. ALLERGIES: Denies. SOCIAL HISTORY: No smoking. No alcohol. No intravenous drug abuse. FAMILY HISTORY: Noncontributory. PHYSICAL EXAMINATION: GENERAL: Calm in bed, oriented x3, no acute distress. VITAL SIGNS: Temperature is 97 degrees, pulse , respirations 18, blood pressure 124/68. CARDIOVASCULAR: No murmur. LUNGS: Distant and clear. ABDOMEN: Bowel sounds positive. Nontender. Nondistended. EXTREMITIES: No cyanosis, clubbing, or edema. NEUROLOGIC: The patient moves all extremities, slightly weak. LABORATORY AND DIAGNOSTIC DATA: Labs at this time show CBC is normal. BMP shows initial sodium 131, chloride 92, creatinine 1.4, glucose of 689, but now recheck is 401. Troponin 0.011. INR is 0.9, PTT is 25. Urine tox is positive for marijuana. Urinalysis show 4+ glucose. ASSESSMENT: 1. Diabetes. 2. Hyperglycemia. 3. Abdominal distention. 4. Lactic acidosis. 5. Hypertension. 6. Drug abuse. PLAN: 1. Blood pressure, blood sugar, pain control. 2. Dietary followup. 3. GI and Endocrine followup. 4. Detox. 5. PT and dietary evaluation. 6. CBC and BMP in the morning. Shalom Ellison D.O. DR: TRUDY JOB#: [id number] CC:
[2019-04-29 16:00] VITALS: BP 130/78
[2019-04-29] MEDS: GlipiZIDE 5mg tab ORAL SCH (17:30)
--- NOTE | 2019-04-29 19:42 | NUR ---
HAND-OFF: Report given to Melissa/RN, Patient is in stable condition, Endorsed plan of care.
--- NOTE | 2019-04-29 19:45 | NUR ---
NURSE NOTES: received pt from JOELLE Foster. pt is AO X4, able to make needs known, denies pain at this time. pt is on room air, tolerating well. no s/sx of respiratory distress noted. cardiac nurse specialist shows SR. no acute cardiac distress noted. RAC 18 g IV site is patent and intact, running D51/2 NS at 60 cc/hr. bed in lowest position and locked, siderails up X2, call light within reach. will continue to monitor.
[2019-04-29 20:00] VITALS: BP 128/79
--- NOTE | 2019-04-29 22:15 | Consultation ---
DATE OF CONSULTATION: 04/29/2019 GASTROENTEROLOGY CONSULTATION CONSULTING PHYSICIAN: Carlos Light M.D. CHIEF COMPLAINT: I was asked to see this patient by Dr. Shalom Ellison for evaluation of abdominal complaints. HISTORY OF PRESENT ILLNESS: The patient is a 48-year-old woman who comes through the emergency room due to abdominal distention. The patient has had a 3-week history of abdominal distention and discomfort, which was uncertain, but got worse a week prior to admission. She also noticed decreased amounts of bowel movements and somewhat constipated pattern. She does take marijuana and has had a history of cocaine use in the past, but she states she is not active on drug use anymore. She has not had a colonoscopy, and denies any hematochezia. She had some nausea, but no vomiting. She came to the emergency room where a CT scan showed fecal loading and blood tests showed diabetes, which is out of control and therefore she was admitted. She feels better today and abdomen is actually more flat, but she has not had a bowel movement yet. PAST MEDICAL HISTORY: History of diabetes, history of high cholesterol. PAST SURGICAL HISTORY: Status post gynecological surgery. FAMILY HISTORY: Noncontributory. SOCIAL HISTORY: The patient denies smoking or drinking alcohol, although she does have some marijuana use. ALLERGIES: None. REVIEW OF SYSTEMS: Otherwise negative. MEDICATIONS: See the chart list for details. PHYSICAL EXAMINATION: GENERAL: Pleasant woman, seen in her room. HEENT: Normocephalic and atraumatic. Sclerae are anicteric. Oropharynx is clear. NECK: Supple. CHEST: Clear to auscultation. CARDIOVASCULAR: Revealed a regular rate. ABDOMEN: Soft, flat. Good bowel sounds. There is no tenderness. EXTREMITIES: Revealed no edema. LABORATORY AND DIAGNOSTIC DATA: Laboratory data were noted. CT scan was reviewed. ASSESSMENT: This patient presents with a vague complaint of abdominal discomfort, which coincides with a period of constipation. The CT scan is consistent with fecal loading and therefore that potentially may be the only finding to evaluate and treat. I would like patient to be placed on sorbitol as needed to clear out the bowel. I will also check a stool occult blood. The patient should undergo a colonoscopy given her symptoms, but this could be as an outpatient in the near future. For the time being, I would hydrate the patient. Initial creatinine was 1.4 and followup alkaline phosphate which was mildly elevated. RECOMMENDATIONS: Per above discussion and per orders written in the chart. Thank you for asking me to participate in the care of this patient. Carlos Light M.D. DR: CHARLOTTE JOB#: [id number] CC: MERISSA
--- NOTE | 2019-04-29 23:00 | Consultation ---
DATE OF CONSULTATION: 04/29/2019 ENDOCRINOLOGY CONSULTATION CONSULTING PHYSICIAN: Reilly Summers M.D. REFERRING PHYSICIAN: Shalom Ellison M.D. REASON FOR CONSULTATION: Diabetes management. HISTORY OF PRESENT ILLNESS: This is a 48-year-old female with a history of diabetes, on metformin and glipizide as an outpatient, who presents to the hospital with abdominal pain and bloating and a glucose of 689. The patient's lactic acid is elevated at 7.3. Endocrinology was consulted in order to assist in management of diabetes. PAST MEDICAL HISTORY: 1. Diabetes. 2. Hypothyroidism. 3. Hypertension. 4. Hyperlipidemia. MEDICATIONS: Reviewed and reconciled. SOCIAL HISTORY: Smokes marijuana. No alcohol or drug use. REVIEW OF SYSTEMS: A 12-point review of systems was performed. The pertinent positives and negatives are mentioned in the history of present illness. LABORATORY DATA: Sodium 131, potassium 4.4, chloride 92, bicarb 24, BUN 12, creatinine 1.4, glucose 689, and lactic acid 7.3. PHYSICAL EXAMINATION: GENERAL: She is awake and alert. VITAL SIGNS: Blood pressure is 146/91, heart rate of 79, respiratory rate of 18, and temperature of 97.5. HEENT: Pupils are equal and reactive to light. Sclerae are anicteric. NECK: No JVD. No thyromegaly. No bruits. LUNGS: Clear. HEART: Regular rate and rhythm. ABDOMEN: Positive bowel sounds. EXTREMITIES: No clubbing, cyanosis, or edema. ASSESSMENT: 1. Diabetes, out of control. 2. Hypothyroidism. PLAN: 1. Check TSH. 2. Check A1c. 3. Discontinue metformin. The patient has lactic acidosis. 4. Increase glipizide to 5 mg b.i.d. 5. Add Starlix 120 mg before each meal. 6. Add Januvia 100 mg daily. 7. NovoLog sliding scale before meals and at bedtime. 8. If she fails the oral medications, we will start the patient on insulin regimen. 9. Follow the patient closely during hospital stay. Thank you, Dr. Ellison, for the courtesy of this consultation. Reilly Summers M.D. DR: REVA JOB#: [id number] CC:
[2019-04-30] VITALS: BP 113/72
[2019-04-30 04:00] VITALS: BP 140/64
[2019-04-30] MEDS: NovoLOG Insulin Flexpen SUBQ SCH ×4 (06:28→20:33)
--- NOTE | 2019-04-30 07:14 | General Progress Note ---
Assessment/Plan Problem List: (1) Hyperglycemia ICD Codes: R73.9 - Hyperglycemia, unspecified SNOMED: 62991827 (2) Elevated lactic acid level ICD Codes: R79.89 - Other specified abnormal findings of blood chemistry SNOMED: 6506792 (3) Chest pain ICD Codes: R07.9 - Chest pain, unspecified SNOMED: 13521980 (4) Prolonged QT interval ICD Codes: R94.31 - Abnormal electrocardiogram [ECG] [EKG] SNOMED: 958255491 Assessment/Plan: diabetes in very poor control despite combination of oral diabetic agents will add Levemir 20 units daily continue Glipizide 5 mg bid + Starlix 120 mg ac tid + Januvia 100 mg daily continue to hold Metformin continue NISS ac / hs Subjective Allergies: Coded Allergies: No Known Allergies (Unverified , 02/22/19) All Systems: reviewed and negative except above Subjective glucose values remain elevated despite multiple oral diabetic agents Metformin is on hold due to lactic acidosis Item Value Date Time Bedside Blood Glucose 348 mg/dl H 04/30/19 0630 Bedside Blood Glucose 274 mg/dl H 04/29/19 2154 Bedside Blood Glucose 294 mg/dl H 04/29/19 1800 Bedside Blood Glucose 383 mg/dl H 04/29/19 1220 Bedside Blood Glucose 378 mg/dl H 04/29/19 0620 Objective Last 24 Hour Vital Signs Date Time Temp Pulse Resp B/P (MAP) Pulse Ox O2 Delivery O2 Flow Rate FiO2 04/30/19 04:00 66 04/30/19 04:00 96.9 66 20 140/64 (89) 100 04/30/19 00:00 72 04/30/19 00:00 98.2 68 20 113/72 (86) 97 04/29/19 21:00 Room Air 04/29/19 20:00 86 04/29/19 20:00 97.7 78 18 128/79 (95) 96 04/29/19 16:00 82 04/29/19 16:00 97.7 74 20 130/78 (95) 95 04/29/19 12:00 98.1 82 18 124/87 (99) 98 04/29/19 12:00 86 04/29/19 09:00 Room Air 04/29/19 08:52 146/91 04/29/19 08:00 71 04/29/19 08:00 97.5 69 20 146/91 (109) 100 Intake and Output 04/29/19 04/30/19 19:00 07:00 Intake Total 400 ml 660 ml Balance 400 ml 660 ml Intake Oral 400 ml IV Total 660 ml # Voids 2 1 Height (Feet): 5 Height (Inches): 6.00 Weight (Pounds): 140 General Appearance: no apparent distress Neck: normal alignment Cardiovascular: normal rate Respiratory/Chest: lungs clear Abdomen: normal bowel sounds Pelvis: normal external exam Objective Current Medications Medications (Trade) Dose Ordered Sig/Janet Route PRN Reason Start Time Stop Time Status Last Admin Dose Admin Acetaminophen (Tylenol) 1,000 mg Q6H PRN ORAL Mild Pain/Temp > 100.5 04/29/19 02:45 05/29/19 01:59 Atorvastatin Calcium (Lipitor) 20 mg BEDTIME ORAL 04/29/19 21:00 05/29/19 20:59 04/29/19 20:59 Barium Sulfate (Readi-Cat 2) 450 ml NOW PRN ORAL Radiology Procedure 04/28/19 12:15 04/30/19 12:04 Dextrose (Dextrose 50%) 25 ml Q30M PRN IV Hypoglycemia 04/29/19 01:00 05/29/19 00:59 Dextrose (Dextrose 50%) 50 ml Q30M PRN IV Hypoglycemia 04/29/19 01:00 05/29/19 00:59 Dextrose/Sodium Chloride 1,000 ml @ 60 mls/hr [id number] IV 04/29/19 01:00 05/29/19 00:59 04/29/19 17:31 Glipizide (Glucotrol) 5 mg BID ORAL 04/29/19 18:00 05/29/19 08:59 04/29/19 17:30 Insulin Aspart (NovoLOG) BEFORE MEALS AND HS SUBQ 04/29/19 06:30 05/29/19 06:29 04/30/19 06:28 Iohexol (OMNIPAQUE-300 100ml) 100 ml NOW PRN INJ Radiology Procedure 04/28/19 12:15 04/30/19 12:04 Levothyroxine Sodium (Synthroid) 75 mcg 0630 ORAL 04/30/19 06:30 05/29/19 06:29 04/30/19 06:26 Losartan Potassium (Cozaar) 50 mg DAILY ORAL 04/29/19 09:00 05/29/19 08:59 04/29/19 08:52 Morphine Sulfate (Morphine Sulfate) 2 mg Q4H PRN IVP For Pain 04/29/19 01:00 05/06/19 00:59 04/29/19 08:52 Nateglinide (Starlix) 120 mg TIAC ORAL 04/29/19 16:30 05/29/19 16:29 04/30/19 06:26 Ondansetron HCl (Zofran) 4 mg Q4H PRN IVP Nausea & Vomiting 04/29/19 01:00 05/29/19 00:59 Sitagliptin Phosphate (Januvia) 100 mg ACBREAKFAST ORAL 04/29/19 13:30 05/29/19 13:29 04/30/19 06:26 Reilly Summers MD Apr 30, 2019 07:14
--- NOTE | 2019-04-30 07:15 | NUR ---
NURSE NOTES: Received report from Melissa/RN, Patient is awake and alert, x4, sitting on bed. On room air, no acute distress/SOB noted. Able to make needs known, Denies pain at this time. IV on right AC patent, no infiltration or bleeding noted, D5 1/2 NS running at 60cc/hr. Bed in low position and locked, Call light within reach, Encouraged to use call light when needed. Will continue plan of care.
--- NOTE | 2019-04-30 07:42 | NUR ---
HAND-OFF: Report given to JOELLE Foster. pt is in stable condition.
[2019-04-30 08:00] VITALS: BP 132/73
--- NOTE | 2019-04-30 08:24 | General Progress Note ---
Assessment/Plan Problem List: (1) Diabetes ICD Codes: E11.9 - Type 2 diabetes mellitus without complications SNOMED: 01300628 (2) Abdominal distention ICD Codes: R14.0 - Abdominal distension (gaseous) SNOMED: 78082891 (3) Elevated lactic acid level ICD Codes: R79.89 - Other specified abnormal findings of blood chemistry SNOMED: 8211642 (4) Hyperglycemia ICD Codes: R73.9 - Hyperglycemia, unspecified SNOMED: 95165267 Status: unchanged Assessment/Plan: pt diet bs pain control gi endo f/u cbc bmp am Subjective Constitutional: Reports: weakness Allergies: Coded Allergies: No Known Allergies (Unverified , 02/22/19) All Systems: reviewed and negative except above Subjective sitting calm Objective Last 24 Hour Vital Signs Date Time Temp Pulse Resp B/P (MAP) Pulse Ox O2 Delivery O2 Flow Rate FiO2 04/30/19 04:00 66 04/30/19 04:00 96.9 66 20 140/64 (89) 100 04/30/19 00:00 72 04/30/19 00:00 98.2 68 20 113/72 (86) 97 04/29/19 21:00 Room Air 04/29/19 20:00 86 04/29/19 20:00 97.7 78 18 128/79 (95) 96 04/29/19 16:00 82 04/29/19 16:00 97.7 74 20 130/78 (95) 95 04/29/19 12:00 98.1 82 18 124/87 (99) 98 04/29/19 12:00 86 04/29/19 09:00 Room Air 04/29/19 08:52 146/91 Intake and Output 04/29/19 04/30/19 19:00 07:00 Intake Total 400 ml 660 ml Balance 400 ml 660 ml Intake Oral 400 ml IV Total 660 ml # Voids 2 1 Height (Feet): 5 Height (Inches): 6.00 Weight (Pounds): 140 General Appearance: alert EENT: normal ENT inspection Neck: normal alignment Cardiovascular: normal peripheral pulses, normal rate, regular rhythm Respiratory/Chest: chest wall non-tender, lungs clear, normal breath sounds Abdomen: normal bowel sounds, non tender, soft Extremities: normal inspection Edema: no edema noted Arm (L), no edema noted Arm (R), no edema noted Leg (L), no edema noted Leg (R), no edema noted Pedal (L), no edema noted Pedal (R), no edema noted Generalized Neurologic: responsive, motor weakness Skin: normal pigmentation, warm/dry Shalom Ellison DO Apr 30, 2019 08:24
[2019-04-30 08:46] LABS: BASOPHILS % (AUTO) 0.9 % (0.0-2.0); EOSINOPHILS % (AUTO) 2.6 % (0.0-3.0); HEMATOCRIT 39.9 % (37.0-47.0); HEMOGLOBIN 13.6 G/DL (12.0-16.0); LYMPHOCYTES % (AUTO) 27.4 % (20.0-45.0); MEAN CORPUSCULAR VOLUME 87 FL (80-99); MONOCYTES % (AUTO) 6.4 % (1.0-10.0); NEUTROPHILS % (AUTO) 62.7 % (45.0-75.0); PLATELET COUNT 199 K/UL (150-450); RED BLOOD COUNT 4.59 M/UL (4.20-5.40); RED CELL DISTRIBUTION WIDTH 11.9 % (11.6-14.8); WHITE BLOOD COUNT 5.6 K/UL (4.8-10.8)
[2019-04-30 09:00] LABS: ANION GAP 7 mmol/L (5-15); BLOOD UREA NITROGEN 8 mg/dL (7-18); CALCIUM 8.7 MG/DL (8.5-10.1); CARBON DIOXIDE 30 MMOL/L (21-32); CHLORIDE 101 MMOL/L (98-107); SODIUM 138 MMOL/L (136-145)
[2019-04-30] MEDS ORDERED: Levemir Flexpen SUBQ SCH (09:00)
[2019-04-30 09:06] LABS: ALANINE AMINOTRANSFERASE 44 U/L (12-78); ALBUMIN 3.3 G/DL (3.4-5.0); ALKALINE PHOSPHATASE 99 U/L (46-116); ASPARTATE AMINO TRANSFERASE 23 U/L (15-37); BILIRUBIN,DIRECT < 0.1 MG/DL (0.0-0.3); BILIRUBIN,TOTAL 0.4 MG/DL (0.2-1.0)
[2019-04-30] MEDS: GlipiZIDE 5mg tab ORAL SCH ×2 (09:20→17:13)
[2019-04-30] MEDS: Losartan 50mg tab ORAL SCH (09:20)
[2019-04-30] MEDS: D5 1/2NS 1,000 ML IV SCH (09:21)
--- NOTE | 2019-04-30 11:07 | NUR ---
PT Note PT chelle completed. Patient is safe and independent in all aspects of mobility. She has a steady gait. No f/u PT visits recommended at this time. Addendum: 04/30/19 at 1107 by ASHISH RAMOS PT Amended: Links added.
[2019-04-30 12:00] VITALS: BP 140/90
--- NOTE | 2019-04-30 15:28 | General Progress Note ---
Assessment/Plan Status: unchanged Assessment/Plan: Assessment - abdominal discomfort - resolved - constipation - DM - HTN Recommendations - po diet - bowel regimen Subjective Allergies: Coded Allergies: No Known Allergies (Unverified , 02/22/19) Subjective feels better (+) BM tolerating PO Objective Last 24 Hour Vital Signs Date Time Temp Pulse Resp B/P (MAP) Pulse Ox O2 Delivery O2 Flow Rate FiO2 04/30/19 12:00 97.7 73 18 140/90 (107) 92 04/30/19 12:00 63 04/30/19 09:20 132/73 04/30/19 09:00 Room Air 04/30/19 08:00 81 04/30/19 08:00 97.9 84 19 132/73 (92) 92 04/30/19 04:00 66 04/30/19 04:00 96.9 66 20 140/64 (89) 100 04/30/19 00:00 72 04/30/19 00:00 98.2 68 20 113/72 (86) 97 04/29/19 21:00 Room Air 04/29/19 20:00 86 04/29/19 20:00 97.7 78 18 128/79 (95) 96 04/29/19 16:00 82 04/29/19 16:00 97.7 74 20 130/78 (95) 95 Intake and Output 04/29/19 04/30/19 19:00 07:00 Intake Total 400 ml 660 ml Balance 400 ml 660 ml Intake Oral 400 ml IV Total 660 ml # Voids 2 1 Laboratory Tests 04/29/19 17:30: Stool Occult Blood Negative 04/30/19 08:25: White Blood Count 5.6, Red Blood Count 4.59, Hemoglobin 13.6, Hematocrit 39.9, Mean Corpuscular Volume 87, Mean Corpuscular Hemoglobin 29.7, Mean Corpuscular Hemoglobin Concent 34.1, Red Cell Distribution Width 11.9, Platelet Count 199, Mean Platelet Volume 8.2, Neutrophils (%) (Auto) 62.7, Lymphocytes (%) (Auto) 27.4, Monocytes (%) (Auto) 6.4, Eosinophils (%) (Auto) 2.6, Basophils (%) (Auto ) 0.9, Sodium Level 138, Potassium Level 4.0, Chloride Level 101, Carbon Dioxide Level 30, Anion Gap 7, Blood Urea Nitrogen 8, Creatinine 1.0, Estimat Glomerular Filtration Rate > 60, Glucose Level 407H, Calcium Level 8.7, Total Bilirubin 0.4, Direct Bilirubin < 0.1, Aspartate Amino Transf (AST/SGOT) 23, Alanine Aminotransferase (ALT/SGPT) 44, Alkaline Phosphatase 99, Total Protein 6.3L, Albumin 3.3L Height (Feet): 5 Height (Inches): 6.00 Weight (Pounds): 140 Carlos Light MD Apr 30, 2019 15:28
[2019-04-30 16:00] VITALS: BP 136/95
--- NOTE | 2019-04-30 19:12 | NUR ---
HAND-OFF: Report given to Uziel/RN, Patient is in stable condition. Endorsed plan of care.
--- NOTE | 2019-04-30 19:26 | NUR ---
NURSE NOTES: Received report from Kristin RN, pt. in bed awake, A/O x's4- able to make needs known, no signs or symptoms of acute cardiac or respiratory distress noted, bed alarm on, side rails up x's 3 and safety brakes engaged, bed in low position, pt. appears to be resting comfortably in bed watching television, pt. okay to ambulate per endorsement- steady gait, Rt. wrist 20G IV intact and patent, safety measures continued, will continue with plan of care.
[2019-04-30 20:00] VITALS: BP 116/88
[2019-05-01] VITALS: BP 113/69
[2019-05-01 04:00] VITALS: BP 113/75
[2019-05-01] MEDS: NovoLOG Insulin Flexpen SUBQ SCH ×2 (05:47→12:01)
--- NOTE | 2019-05-01 06:58 | General Progress Note ---
Assessment/Plan Problem List: (1) Hyperglycemia ICD Codes: R73.9 - Hyperglycemia, unspecified SNOMED: 10342311 (2) Elevated lactic acid level ICD Codes: R79.89 - Other specified abnormal findings of blood chemistry SNOMED: 0993379 (3) Chest pain ICD Codes: R07.9 - Chest pain, unspecified SNOMED: 02149380 (4) Prolonged QT interval ICD Codes: R94.31 - Abnormal electrocardiogram [ECG] [EKG] SNOMED: 909023877 Status: unchanged Assessment/Plan: glycemic control improved DC Levemir continue Glipizide 5 mg bid + Starlix 120 mg ac tid + Januvia 100 mg daily continue to hold Metformin continue NISS ac / hs Subjective Allergies: Coded Allergies: No Known Allergies (Unverified , 02/22/19) All Systems: reviewed and negative except above Subjective glucose values improved Item Value Date Time Bedside Blood Glucose 96 mg/dl 05/01/19 0550 Bedside Blood Glucose 158 mg/dl H 04/30/19 2033 Bedside Blood Glucose 120 mg/dl 04/30/19 1630 Bedside Blood Glucose 257 mg/dl H 04/30/19 1229 Bedside Blood Glucose 368 mg/dl H 04/30/19 0930 Bedside Blood Glucose 348 mg/dl H 04/30/19 0630 Objective Last 24 Hour Vital Signs Date Time Temp Pulse Resp B/P (MAP) Pulse Ox O2 Delivery O2 Flow Rate FiO2 05/01/19 04:00 97.5 67 20 113/75 (88) 99 05/01/19 03:42 62 05/01/19 00:00 97.7 65 18 113/69 (84) 100 04/30/19 23:39 65 04/30/19 21:00 Room Air 04/30/19 20:00 78 04/30/19 20:00 97.9 71 18 116/88 (97) 100 04/30/19 16:00 97.8 75 20 136/95 (109) 100 04/30/19 16:00 88 04/30/19 12:00 97.7 73 18 140/90 (107) 92 04/30/19 12:00 63 04/30/19 09:20 132/73 04/30/19 09:00 Room Air 04/30/19 08:00 81 04/30/19 08:00 97.9 84 19 132/73 (92) 92 Intake and Output 04/30/19 05/01/19 19:00 07:00 Intake Total 900 ml Balance 900 ml Intake Oral 900 ml # Voids 6 3 # Bowel Movements 1 Laboratory Tests 04/30/19 08:25: White Blood Count 5.6, Red Blood Count 4.59, Hemoglobin 13.6, Hematocrit 39.9, Mean Corpuscular Volume 87, Mean Corpuscular Hemoglobin 29.7, Mean Corpuscular Hemoglobin Concent 34.1, Red Cell Distribution Width 11.9, Platelet Count 199, Mean Platelet Volume 8.2, Neutrophils (%) (Auto) 62.7, Lymphocytes (%) (Auto) 27.4, Monocytes (%) (Auto) 6.4, Eosinophils (%) (Auto) 2.6, Basophils (%) (Auto ) 0.9, Sodium Level 138, Potassium Level 4.0, Chloride Level 101, Carbon Dioxide Level 30, Anion Gap 7, Blood Urea Nitrogen 8, Creatinine 1.0, Estimat Glomerular Filtration Rate > 60, Glucose Level 407H, Calcium Level 8.7, Total Bilirubin 0.4, Direct Bilirubin < 0.1, Aspartate Amino Transf (AST/SGOT) 23, Alanine Aminotransferase (ALT/SGPT) 44, Alkaline Phosphatase 99, Total Protein 6.3L, Albumin 3.3L 05/01/19 06:20: White Blood Count [Pending], Red Blood Count [Pending], Hemoglobin [Pending], Hematocrit [Pending], Mean Corpuscular Volume [Pending], Mean Corpuscular Hemoglobin [Pending], Mean Corpuscular Hemoglobin Concent [Pending], Red Cell Distribution Width [Pending], Platelet Count [Pending], Mean Platelet Volume [ Pending], Neutrophils (%) (Auto) [Pending], Lymphocytes (%) (Auto) [Pending], Monocytes (%) (Auto) [Pending], Eosinophils (%) (Auto) [Pending], Basophils (%) (Auto) [Pending], Sodium Level [Pending], Potassium Level [Pending], Chloride Level [Pending], Carbon Dioxide Level [Pending], Blood Urea Nitrogen [Pending], Creatinine [Pending], Estimat Glomerular Filtration Rate [Pending], Glucose Level [Pending], Calcium Level [Pending] Height (Feet): 5 Height (Inches): 6.00 Weight (Pounds): 140 General Appearance: no apparent distress Neck: normal alignment Cardiovascular: normal rate Respiratory/Chest: lungs clear Abdomen: normal bowel sounds Pelvis: normal external exam Objective Current Medications Medications (Trade) Dose Ordered Sig/Janet Route PRN Reason Start Time Stop Time Status Last Admin Dose Admin Acetaminophen (Tylenol) 1,000 mg Q6H PRN ORAL Mild Pain/Temp > 100.5 04/29/19 02:45 05/29/19 01:59 Atorvastatin Calcium (Lipitor) 20 mg BEDTIME ORAL 04/29/19 21:00 05/29/19 20:59 04/30/19 20:28 Dextrose (Dextrose 50%) 25 ml Q30M PRN IV Hypoglycemia 04/30/19 07:15 05/30/19 07:14 Dextrose (Dextrose 50%) 50 ml Q30M PRN IV Hypoglycemia 04/30/19 07:15 05/30/19 07:14 Glipizide (Glucotrol) 5 mg BID ORAL 04/29/19 18:00 05/29/19 08:59 04/30/19 17:13 Insulin Aspart (NovoLOG) BEFORE MEALS AND HS SUBQ 04/29/19 06:30 05/29/19 06:29 04/30/19 20:33 Insulin Detemir (Levemir) 20 units DAILY SUBQ 04/30/19 09:00 05/30/19 08:59 04/30/19 09:30 Levothyroxine Sodium (Synthroid) 75 mcg 0630 ORAL 04/30/19 06:30 05/29/19 06:29 05/01/19 05:48 Losartan Potassium (Cozaar) 50 mg DAILY ORAL 04/29/19 09:00 05/29/19 08:59 04/30/19 09:20 Morphine Sulfate (Morphine Sulfate) 2 mg Q4H PRN IVP For Pain 04/29/19 01:00 05/06/19 00:59 04/29/19 08:52 Nateglinide (Starlix) 120 mg TIAC ORAL 04/29/19 16:30 05/29/19 16:29 05/01/19 05:48 Ondansetron HCl (Zofran) 4 mg Q4H PRN IVP Nausea & Vomiting 04/29/19 01:00 05/29/19 00:59 Sitagliptin Phosphate (Januvia) 100 mg ACBREAKFAST ORAL 04/29/19 13:30 05/29/19 13:29 05/01/19 05:48 Reilly Summers MD May 01, 2019 06:58
[2019-05-01 07:04] LABS: ANION GAP 7 mmol/L (5-15); BLOOD UREA NITROGEN 7 mg/dL (7-18); CALCIUM 9.1 MG/DL (8.5-10.1); CARBON DIOXIDE 31 MMOL/L (21-32); CHLORIDE 104 MMOL/L (98-107); CREATININE 0.8 MG/DL (0.55-1.30); SODIUM 142 MMOL/L (136-145)
[2019-05-01 07:10] LABS: BASOPHILS % (AUTO) 1.7 % (0.0-2.0); EOSINOPHILS % (AUTO) 2.4 % (0.0-3.0); HEMOGLOBIN 14.6 G/DL (12.0-16.0); MEAN CORPUSCULAR VOLUME 85 FL (80-99); MONOCYTES % (AUTO) 6.7 % (1.0-10.0); NEUTROPHILS % (AUTO) 53.2 % (45.0-75.0); PLATELET COUNT 225 K/UL (150-450); RED BLOOD COUNT 4.94 M/UL (4.20-5.40)
--- NOTE | 2019-05-01 07:28 | NUR ---
HAND-OFF: Report given to Kim. Rodríguez Rn, pt. remains stable and no distress noted.
--- NOTE | 2019-05-01 07:30 | NUR ---
NURSE NOTES: Received report from JOELLE Triplett. The patient is resting on the bed without acute distress or shortness of breath. The patient's bed in the lowest position, call light in reach, and fall and aspiration precaution reinforced. IV site intact and patent. Will continue plan of care.
[2019-05-01 08:00] VITALS: BP 129/80
[2019-05-01] MEDS: GlipiZIDE 5mg tab ORAL SCH (08:46)
[2019-05-01] MEDS: Losartan 50mg tab ORAL SCH (08:46)
[2019-05-01] MEDS ORDERED: metFORMIN 500mg tab ORAL SCH (09:00)
--- NOTE | 2019-05-01 09:30 | NUR ---
NURSE NOTES: CEDRIC Simon is making a round and assessed the patient. Per CEDRIC Simon, the patient is cleared by GI standpoint. The patient is stable without acute distress or shortness of breath. Will continue plan of care.
--- NOTE | 2019-05-01 09:52 | General Progress Note ---
Assessment/Plan Problem List: (1) Diabetes ICD Codes: E11.9 - Type 2 diabetes mellitus without complications SNOMED: 67116169 (2) Abdominal distention ICD Codes: R14.0 - Abdominal distension (gaseous) SNOMED: 42867368 (3) Elevated lactic acid level ICD Codes: R79.89 - Other specified abnormal findings of blood chemistry SNOMED: 1643011 (4) Hyperglycemia ICD Codes: R73.9 - Hyperglycemia, unspecified SNOMED: 03475150 Status: stable, progressing Assessment/Plan: pt diet bs pain control gi endo dc if clear Subjective Constitutional: Reports: weakness Allergies: Coded Allergies: No Known Allergies (Unverified , 02/22/19) All Systems: reviewed and negative except above Subjective sitting calm Objective Last 24 Hour Vital Signs Date Time Temp Pulse Resp B/P (MAP) Pulse Ox O2 Delivery O2 Flow Rate FiO2 05/01/19 08:46 129/80 05/01/19 04:00 97.5 67 20 113/75 (88) 99 05/01/19 03:42 62 05/01/19 00:00 97.7 65 18 113/69 (84) 100 04/30/19 23:39 65 04/30/19 21:00 Room Air 04/30/19 20:00 78 04/30/19 20:00 97.9 71 18 116/88 (97) 100 04/30/19 16:00 97.8 75 20 136/95 (109) 100 04/30/19 16:00 88 04/30/19 12:00 97.7 73 18 140/90 (107) 92 04/30/19 12:00 63 Intake and Output 04/30/19 05/01/19 19:00 07:00 Intake Total 900 ml Balance 900 ml Intake Oral 900 ml # Voids 6 3 # Bowel Movements 1 Laboratory Tests 05/01/19 06:20: White Blood Count 6.0, Red Blood Count 4.94, Hemoglobin 14.6, Hematocrit 42.0, Mean Corpuscular Volume 85, Mean Corpuscular Hemoglobin 29.6, Mean Corpuscular Hemoglobin Concent 34.8, Red Cell Distribution Width 12.0, Platelet Count 225, Mean Platelet Volume 8.9, Neutrophils (%) (Auto) 53.2, Lymphocytes (%) (Auto) 36.0, Monocytes (%) (Auto) 6.7, Eosinophils (%) (Auto) 2.4, Basophils (%) (Auto ) 1.7, Sodium Level 142, Potassium Level 5.0, Chloride Level 104, Carbon Dioxide Level 31, Anion Gap 7, Blood Urea Nitrogen 7, Creatinine 0.8, Estimat Glomerular Filtration Rate > 60, Glucose Level 135#H, Calcium Level 9.1 Height (Feet): 5 Height (Inches): 6.00 Weight (Pounds): 140 General Appearance: alert EENT: normal ENT inspection Neck: normal alignment Cardiovascular: normal peripheral pulses, normal rate, regular rhythm Respiratory/Chest: chest wall non-tender, lungs clear, normal breath sounds Abdomen: normal bowel sounds, non tender, soft Extremities: normal inspection Edema: no edema noted Arm (L), no edema noted Arm (R), no edema noted Leg (L), no edema noted Leg (R), no edema noted Pedal (L), no edema noted Pedal (R), no edema noted Generalized Neurologic: motor weakness Skin: normal pigmentation, warm/dry Shalom Ellison DO May 01, 2019 09:52
--- NOTE | 2019-05-01 10:45 | GI Progress Note ---
Assessment/Plan Problems: (1) Abdominal distention ICD Codes: R14.0 - Abdominal distension (gaseous) SNOMED: 44654372 (2) Hyperglycemia ICD Codes: R73.9 - Hyperglycemia, unspecified SNOMED: 83907516 (3) Diabetes ICD Codes: E11.9 - Type 2 diabetes mellitus without complications SNOMED: 16698342 Status: stable Status Narrative Discussed with Dr. Styles. Assessment/Plan Assessment - abdominal discomfort - resolved - constipation - DM - HTN Recommendations - okay for DC per GI standpoint - po diet - bowel regimen The patient was seen and examined at bedside and all new and available data was reviewed in the patients chart. I agree with the above findings, impression and plan. (Patient seen earlier today. Signature stamp does not reflect patient encounter time.). - Cortes Styels MD Subjective Gastrointestinal/Abdominal: Reports: no symptoms Objective Last 24 Hour Vital Signs Date Time Temp Pulse Resp B/P (MAP) Pulse Ox O2 Delivery O2 Flow Rate FiO2 05/01/19 08:46 129/80 05/01/19 04:00 97.5 67 20 113/75 (88) 99 05/01/19 03:42 62 05/01/19 00:00 97.7 65 18 113/69 (84) 100 04/30/19 23:39 65 04/30/19 21:00 Room Air 04/30/19 20:00 78 04/30/19 20:00 97.9 71 18 116/88 (97) 100 04/30/19 16:00 97.8 75 20 136/95 (109) 100 04/30/19 16:00 88 04/30/19 12:00 97.7 73 18 140/90 (107) 92 04/30/19 12:00 63 Intake and Output 04/30/19 05/01/19 19:00 07:00 Intake Total 900 ml Balance 900 ml Intake Oral 900 ml # Voids 6 3 # Bowel Movements 1 Laboratory Tests Test 05/01/19 06:20 White Blood Count 6.0 K/UL (4.8-10.8) Red Blood Count 4.94 M/UL (4.20-5.40) Hemoglobin 14.6 G/DL (12.0-16.0) Hematocrit 42.0 % (37.0-47.0) Mean Corpuscular Volume 85 FL (80-99) Mean Corpuscular Hemoglobin 29.6 PG (27.0-31.0) Mean Corpuscular Hemoglobin Concent 34.8 G/DL (32.0-36.0) Red Cell Distribution Width 12.0 % (11.6-14.8) Platelet Count 225 K/UL (150-450) Mean Platelet Volume 8.9 FL (6.5-10.1) Neutrophils (%) (Auto) 53.2 % (45.0-75.0) Lymphocytes (%) (Auto) 36.0 % (20.0-45.0) Monocytes (%) (Auto) 6.7 % (1.0-10.0) Eosinophils (%) (Auto) 2.4 % (0.0-3.0) Basophils (%) (Auto) 1.7 % (0.0-2.0) Sodium Level 142 MMOL/L (136-145) Potassium Level 5.0 MMOL/L (3.5-5.1) Chloride Level 104 MMOL/L (98-107) Carbon Dioxide Level 31 MMOL/L (21-32) Anion Gap 7 mmol/L (5-15) Blood Urea Nitrogen 7 mg/dL (7-18) Creatinine 0.8 MG/DL (0.55-1.30) Estimat Glomerular Filtration Rate > 60 mL/min (>60) Glucose Level 135 MG/DL (74-106) #H Calcium Level 9.1 MG/DL (8.5-10.1) Height (Feet): 5 Height (Inches): 6.00 Weight (Pounds): 140 General Appearance: WD/WN, no apparent distress, alert Cardiovascular: normal rate Respiratory/Chest: normal breath sounds, no respiratory distress Abdominal Exam: normal bowel sounds, non tender, soft Extremities: normal range of motion, non-tender Tim Arcos NP May 01, 2019 10:45
[2019-05-01 12:00] VITALS: BP 132/92
--- NOTE | 2019-05-01 12:30 | NUR ---
NURSE NOTES: Called Dr. Summers to obtain clearance upon discharge. Per Dr. Summers cleared from endo standpoint. Will work on the patient to be discharged per Dr. Ellison's order. The patient is stable without acute distress or shortness of breath. Will continue plan of care.
[2019-05-01] MEDS ORDERED: GLIPIZIDE5 MG ORAL (13:06)
[2019-05-01] MEDS ORDERED: ATORVASTATIN CA20 MG ORAL (13:06)
[2019-05-01] MEDS ORDERED: LOSARTAN POTASS50 MG ORAL (13:07)
[2019-05-01] MEDS ORDERED: LEVOTHYROXINE75 MCG ORAL (13:07)
[2019-05-01] MEDS ORDERED: STARLIX60 MG ORAL (13:08)
[2019-05-01] MEDS ORDERED: JANUVIA25 MG ORAL (13:09)
--- NOTE | 2019-05-01 13:26 | NUR ---
CASE MANAGEMENT: INITIAL REVIEW 48YR OLD FEMALE FROM HOME CC: ABD PAIN X3 WEEKS SI:HYPERGLYCEMIA 98.3 102 16 145/89 100% ON RA BG 689 LACTIC ACID 7.3 NA+131 CL-92 CREAT 1.4 ALK-PHOS 142 IS:IV CEFEPIME X1 IV FLAGYL X1 IVF NS BOLUS X2 IV NOVOLOG X1 IV ZOFRAN X1 IV PEPCID X1 IV TORADOL X1 \: 2E TELE UNIT DCP: HOME WHEN STABLE CASE MANAGEMENT: INITIAL REVIEW 04/29/19 SI:HYPERGLYCEMIA 97.9 81 19 132/73 92% ON RA BG 689 LACTIC ACID 7.3 NA+131 CL-92 CREAT 1.4 ALK-PHOS 142 IS:IV CEFEPIME X1 IV FLAGYL X1 IVF NS BOLUS X2 IV NOVOLOG X1 IV ZOFRAN X1 IV PEPCID X1 IV TORADOL X1 CHEST X-RAY X1 CT ABD/PEL X1 \: 2E TELE UNIT DCP: HOME WHEN STABLE CASE MANAGEMENT: INITIAL REVIEW 48YR OLD FEMALE FROM HOME CC: ABD PAIN X3 WEEKS SI:HYPERGLYCEMIA 98.3 102 16 145/89 100% ON RA BG 401 CA+8.4 IS:IV D5@60ML/HR COZAAR PO QD GLIPIZIDE PO BID NOVOLOG SQ AC&HS STARLIX PO TIAC SYNTHROID PO QAM \: 2E TELE UNIT DCP: HOME WHEN STABLE PLAN: PT EVAL CASE MANAGEMENT: REVIEW 04/30/2019 SI:HYPERGLYCEMIA 98.3 102 16 145/89 100% ON RA BG 689 LACTIC ACID 7.3 NA+131 CL-92 CREAT 1.4 ALK-PHOS 142 IS:COZAAR PO QD GLIPIZIDE PO BID NOVOLOG SQ AC&HS STARLIX PO TIAC SYNTHROID PO QAM \: 2E TELE UNIT DCP: HOME WHEN STABLE PLAN: DC IN AM
--- NOTE | 2019-05-01 13:45 | NUR ---
NURSE NOTES: The patient got discharged back to home with selfcare per Dr. Ellison's discharge order. The patient's family member presents to support the patient. CEDRIC Simon cleared from GI standpoint. Dr. Summers cleared the patient from Endo standpoint and would like the patient to continue oral diabetics but discontinue insulin. Discharge instruction given to the patient and signed by the patient. The patient's belongings checked with the patient and signed by the patient. IV, nameband, and telebox removed by the primary nurse. The patient's skin is intact. The patient got discharged back to home with selfcare per Dr. Ellison's discharge order in stable vital signs and physical symptoms.
--- NOTE | 2019-05-01 14:18 | NUR ---
*-* INSURANCE *-* ALL CLINICALS AND REVIEWS HAVE BEEN FAXED WITH EXCEPTION OF D/S SUMMARY NOT IN THE SYSTEM YET TO: KAT ESTEBAN: MARGARETH F:[phone] REF# [id number]
[2019-05-01] MEDS ORDERED: Atorvastatin 20mg tab ORAL SCH (21:00)
--- NOTE | 2019-05-02 22:40 | Discharge Summary ---
Discharge Summary Discharge Summary _ DATE OF ADMISSION: 04/28/2019 DATE OF DISCHARGE: 05/01/2019 DISCHARGED BY: Dr GRESHAM REASON FOR ADMISSION: 48 years old female with past medical history of type 2 diabetes, high cholesterol, presented complaining of abdominal distention and pain for 3 weeks. Patient also reported tingling sensation bilateral lower extremity for 1 week. Patient just saw her primary care physician and Accu-Chek showed yjat blood sugar was critically high. Patietn subsequently presented for evaluation. Patient denied any urinary symptoms. She denied chest pain. She denied generalized weakness. No headaches, no dizziness . Upon evaluation patient was slightly tachycardic , otherwise vital signs were stable. Laboratory work-up revealed no leukocytosis, stable hemoglobin, hematocrit. Glucose 689 ,anion gap 15, potassium 4.4 . BUN 12, creatinine 1.4. Lactic acid 7.3. Troponin negative. Urine toxicology screen was positive for marijuana. Patient admitted with lactic acidosis and hyperglycemia. CONSULTANTS: GI specialist Dr. Styles Field Hand [facility] COURSE: Patient admitted AND started on the IV fluids. Blood sugar was managed as per hogshead salvage recommendations. Metformin was discontinued due to severe lactic acidosis. Glipizide dose was uptitrated. Starlix and Januvia added to existing anti-glycemic regimen. Sliding scale of insulin implemented as needed. Hemoglobin A1c 14.3 clearly not at goal. Patient was educated on compliance with medication regimen and diabetic diet. Diabetic teaching provided. Blood sugar improved with current regimen TSH within normal limits. Current dose of levothyroxine continued. CT scan of the abdomen and pelvis revealed moderate fecal retention within the colon. Bowel regimen instituted. Pain management was addressed as needed. Supportive care provided. Patient had bowel movement. Blood pressure was managed with angiotensin receptor terrell and remained stable. Patient clinically stabilized and was ready for discharge home. FINAL DIAGNOSES: Diabetes mellitus [id number] /[id number] Hyperglycemia Lactic acidosis due to metformin Hypertension Abdominal distention Constipation DISCHARGE MEDICATIONS: See Medication Reconciliation list. DISCHARGE INSTRUCTIONS: Patient was discharged home. Follow-up with a primary care provider in 1 week. I have been assigned to dictate discharge summary for this account. I was not involved in the patient's management. Corry Kruger NP May 02, 2019 22:40
--- NOTE | 2019-05-04 16:11 | NUR ---
*-* INSURANCE *-* ALL CLINICALS AND REVIEWS HAVE BEEN FAXED WITH EXCEPTION OF D/S SUMMARY NOT IN THE SYSTEM YET TO: KAT ESTEBAN: MARGARETH F:[phone] REF# [id number]
--- NOTE | 2019-05-09 14:00 | NUR ---
*-* INSURANCE *-* ALL CLINICALS AND REVIEWS HAVE BEEN refaxed: KAT ESTEBAN: MARGARETH F:[phone] REF# [id number]
== END 2019-05-01 13:45 | disposition home or self-care (01) | DRG 638 ==
LOC: EMR 12:20 → 2E 15:13 → EDBEDREQ 18:53
DX: E11.65 Type 2 diabetes mellitus with hyperglycemia (principal); E87.2 Acidosis; T38.3X5A Adverse effect of insulin and oral hypoglycemic [antidiabetic] drugs, initial encounter; I10 Essential (primary) hypertension; R14.0 Abdominal distension (gaseous); K59.00 Constipation, unspecified; F14.11 Cocaine abuse, in remission; R94.31 Abnormal electrocardiogram [ECG] [EKG]
CPT/HCPCS: 36415; 71045; 74177; 80048; 80053; 80076; 80307; 81003; 81025; 82009; 82270; 82550; 82962; 83036; 83605; 83690; 83880; 84443; 84484; 85025; 85610; 85730; 87040; 93005; 96361; 96365; 96375; 99285; J1815; J2405; J7030; S5561